=== PATIENT | female | born 1980 | race Caucasian/White ===

== ENCOUNTER 2021-11-07 00:25 | Emergency (ER) | payer MEDICAID, OTHER ==
[2021-11-07] MEDS ORDERED: FAMOTIDINE 20MG/2ML IV (PEPCID) IV STA (00:32)
[2021-11-07] MEDS ORDERED: NS IV 1000 ML 1,000 ML IV STA (00:32)
--- NOTE | 2021-11-07 00:32 | ED General ---
General Stated Complaint: COVID+;HEMORRHOIDS History of Present Illness Date Seen by Provider: Nov 07, 2021 Time Seen by Provider: 00:32 Initial Comments 41-year-old female presents with some nausea, vomiting, diarrhea, cough. Patient is positive for COVID. Patient symptoms started couple days ago she presents because she has some generalized malaise. Not feeling well. No reports of shortness of breath. Allergies and Home Medications Allergies Coded Allergies: Penicillins (Verified Allergy, Unknown, 11/07/21) Patient Home Medication List Home Medication List Reviewed: Yes Ondansetron (Ondansetron Odt) 4 Mg Tab.rapdis, 4 MG PO Q6H PRN for NAUSEA/VOMITING Prescribed by: SHEEBA PINON on 11/07/21 0154 Review of Systems Review of Systems Constitutional: No chills, No fever; malaise Respiratory: cough; No short of breath Cardiovascular: No chest pain Gastrointestinal: abdominal pain, diarrhea, nausea, vomiting Musculoskeletal: no symptoms reported Skin: no symptoms reported Psychiatric/Neurological: No Symptoms Reported Hematologic/Lymphatic: No Symptoms Reported All Other Systems Reviewed Negative Unless Noted: Yes Physical Exam Vital Signs Vital Signs - First Documented 11/07/21 00:35 Temp 37.1 Pulse 87 Resp 18 B/P (MAP) 179/88 (118) Pulse Ox 99 O2 Delivery Room Air Capillary Refill : Height, Weight, BMI Height: '" Weight: lbs. oz. kg; BMI Method: General Appearance: No Apparent Distress, WD/WN Respiratory: Lungs Clear, Normal Breath Sounds Cardiovascular: Regular Rate, Rhythm, No Edema Gastrointestinal: Soft, Tenderness (Mild tenderness diffuse but greater in left upper quadrant) Extremity: Normal Capillary Refill, Normal Inspection, Normal Range of Motion Neurologic/Psychiatric: Alert, Oriented x3, Normal Mood/Affect Progress/Results/Core Measures Suspected Sepsis SIRS Temperature: Pulse: Respiratory Rate: Laboratory Tests 11/07/21 00:34: White Blood Count 4.9 Blood Pressure / Mean: Laboratory Tests 11/07/21 00:34: Creatinine 0.68, Platelet Count 243, Total Bilirubin 0.2 Results/Orders Lab Results Laboratory Tests Test 11/07/21 00:34 Range/Units White Blood Count 4.9 4.3-11.0 10^3/uL Red Blood Count 4.70 3.80-5.11 10^6/uL Hemoglobin 13.2 11.5-16.0 g/dL Hematocrit 41 35-52 % Mean Corpuscular Volume 87 80-99 fL Mean Corpuscular Hemoglobin 28 25-34 pg Mean Corpuscular Hemoglobin Concent 32 32-36 g/dL Red Cell Distribution Width 13.9 10.0-14.5 % Platelet Count 243 130-400 10^3/uL Mean Platelet Volume 9.5 9.0-12.2 fL Immature Granulocyte % (Auto) 0 % Neutrophils (%) (Auto) 58 42-75 % Lymphocytes (%) (Auto) 34 12-44 % Monocytes (%) (Auto) 6 0-12 % Eosinophils (%) (Auto) 1 0-10 % Basophils (%) (Auto) 0 0-10 % Neutrophils # (Auto) 2.8 1.8-7.8 X 10^3 Lymphocytes # (Auto) 1.7 1.0-4.0 X 10^3 Monocytes # (Auto) 0.3 0.0-1.0 X 10^3 Eosinophils # (Auto) 0.0 0.0-0.3 10^3/uL Basophils # (Auto) 0.0 0.0-0.1 10^3/uL Immature Granulocyte # (Auto) 0.0 0.0-0.1 10^3/uL Sodium Level 139 135-145 MMOL/L Potassium Level 3.9 3.6-5.0 MMOL/L Chloride Level 103 98-107 MMOL/L Carbon Dioxide Level 24 21-32 MMOL/L Anion Gap 12 5-14 MMOL/L Blood Urea Nitrogen 20 H 7-18 MG/DL Creatinine 0.68 0.60-1.30 MG/DL Estimat Glomerular Filtration Rate 114 BUN/Creatinine Ratio 29 Glucose Level 130 H 70-105 MG/DL Calcium Level 9.1 8.5-10.1 MG/DL Corrected Calcium 8.9 8.5-10.1 MG/DL Total Bilirubin 0.2 0.1-1.0 MG/DL Aspartate Amino Transf (AST/SGOT) 132 H 5-34 U/L Alanine Aminotransferase (ALT/SGPT) 88 H 0-55 U/L Alkaline Phosphatase 122 40-136 U/L C-Reactive Protein 0.33 <0.50 MG/DL Total Protein 7.0 6.4-8.2 GM/DL Albumin 4.3 3.2-4.5 GM/DL Lipase 30 8-78 U/L My Orders Orders - JOHN PINONR L DO Cbc With Automated Diff (11/07/21 00:32) Comprehensive Metabolic Panel (11/07/21 00:32) Lipase (11/07/21 00:32) Ua Culture If Indicated (11/07/21 00:32) Crp Fs (11/07/21 00:32) Ondansetron Injection (Zofran Injectio (11/07/21 00:45) Ns Iv 1000 Ml (Sodium Chloride 0.9%) (11/07/21 00:32) Famotidine Injection (Pepcid Injection) (11/07/21 00:32) Chest 1 View Ap/Pa Only (11/07/21 00:32) Ed Iv/Invasive Line Start (11/07/21 00:50) Medications Given in ED Current Medications Medications Dose Ordered Sig/Alem Route Start Time Stop Time Status Last Admin Dose Admin Ondansetron HCl 4 mg ONCE ONCE IVP 11/07/21 00:45 11/07/21 00:46 DC 11/07/21 00:44 4 MG Vital Signs/I&O 11/07/21 11/07/21 00:35 01:54 Temp 37.1 37.1 Pulse 87 80 Resp 18 18 B/P (MAP) 179/88 (118) 168/92 Pulse Ox 99 100 O2 Delivery Room Air Room Air Capillary Refill : Progress Note : Progress Note Patient with positive COVID home test. Patient is feeling better after some IV fluids and is ready to be discharged home. Patient's O2 level has been in the upper 90s. Departure Impression Primary Impression: COVID-19 Disposition: 01 HOME, SELF-CARE Condition: Stable Departure-Patient Inst. Patient Instructions: COVID-19 ED Add. Discharge Instructions: Follow-up with your primary care provider as needed Scripts Ondansetron (Ondansetron Odt) 4 Mg Tab.rapdis 4 MG PO Q6H PRN for NAUSEA/VOMITING, #20 TAB 0 Refills Prov: SHEEBA PINON DO 11/07/21 JOHN PINONR L DO Nov 07, 2021 00:32
[2021-11-07] MEDS ORDERED: ONDANSETRON 4 MG/2 ML (SDV) Z0FRAN IVP ONE (00:45)
[2021-11-07 00:49] LABS: HEMOGLOBIN 13.2 g/dL (11.5-16.0); MEAN CORPUSCULAR HEMOGLOBIN 28 pg (25-34); WHITE BLOOD COUNT 4.9 10^3/uL (4.3-11.0)
[2021-11-07 00:50] LABS: BASOPHILS % (AUTO) 0 % (0-10); EOSINOPHILS % (AUTO) 1 % (0-10); HEMATOCRIT 41 % (35-52); LYMPHOCYTES % (AUTO) 34 % (12-44); MEAN CORPUSCULAR HGB CONC 32 g/dL (32-36); MEAN CORPUSCULAR VOLUME 87 fL (80-99); MEAN PLATELET VOLUME 9.5 fL (9.0-12.2); MONOCYTES % (AUTO) 6 % (0-12); NEUTROPHILS # (AUTO) 2.8 X 10^3 (1.8-7.8); NEUTROPHILS % (AUTO) 58 % (42-75); PLATELET COUNT 243 10^3/uL (130-400)
[2021-11-07 00:51] LABS: LYMPHOCYTES # (AUTO) 1.7 X 10^3 (1.0-4.0); MONOCYTES # (AUTO) 0.3 X 10^3 (0.0-1.0)
[2021-11-07 01:11] LABS: BILIRUBIN,TOTAL 0.2 MG/DL (0.1-1.0); CALCIUM 9.1 MG/DL (8.5-10.1); CREATININE SERUM 0.68 MG/DL (0.60-1.30); POTASSIUM 3.9 MMOL/L (3.6-5.0)
[2021-11-07 01:12] LABS: ALBUMIN 4.3 GM/DL (3.2-4.5)
[2021-11-07 01:54] VITALS: BP 168/92
[2021-11-07] MEDS ORDERED: ONDA4TAB11 PO (01:54)
--- NOTE | 2021-11-07 07:30 | Diagnostic Imaging Report ---
EXAM: CHEST 1 VIEW AP/PA ONLY INDICATION: Cough. COMPARISON: None. FINDINGS: Normal heart size and pulmonary vascularity. No dense consolidation, pleural effusion or pneumothorax. No acute osseous findings. IMPRESSION: No acute cardiopulmonary findings. Dictated by: Dictated on workstation # [id number]
== END 2021-11-07 02:06 | disposition home or self-care (01) ==
LOC: ER FS 00:33
DX: U07.1 COVID-19 (principal)
CPT/HCPCS: 36415; 71045; 80053; 83690; 85025; 86141